=== PATIENT | male | born 1955 | race Caucasian/White ===

== ENCOUNTER 2019-06-10 13:36 | Outpatient (CLI) | payer BC ==
--- NOTE | 2019-06-10 13:57 | RAD ---
EXAM: 4 views of the lumbosacral spine HISTORY: Low back pain COMPARISON: None FINDINGS: 4 views of the lumbosacral spine shows normal height and alignment of the vertebral bodies and intervertebral discs without fracture or subluxation. Mild osteophyte formation is seen in the lower lumbar spine. Alignment is unchanged with flexion and extension. The sacroiliac joints are unremarkable. IMPRESSION: Mild degenerative changes of the lower lumbar spine with unchanged alignment with bending .
== END 2019-06-10 13:37 | disposition home or self-care (01) ==
LOC: TBSIIMAG 13:36
PROVIDERS: ATTEND Surgery
DX: M54.5 Low back pain (principal); M47.816 Spondylosis without myelopathy or radiculopathy, lumbar region
CPT/HCPCS: 72110